=== PATIENT | female | born 1980 | race Caucasian/White ===

== ENCOUNTER → 2020-04-05 | Outpatient (CLI) | payer OTHER ==
[~2020-04-05] MED LIST: AMLO-150 PO; ATOR20TA37 PO; CLOP75TA52 PO; GABA600T7 PO; HUM100VI6 SQ-INSULIN; HYDR25TA6 PO; INSU100V5 SQ-INSULIN; LISI40TA PO; METO50TA82 PO; OMEP-110 PO; OXYC1TAB18 PO; RIVA20TA PO; SCOP1PAT11 TD; SPIR50TA4 PO; VERA240T10 PO
== END | disposition home or self-care (01) ==
LOC: CVU 07:06
PROVIDERS: ATTEND Surgery
DX: S61.401A Unspecified open wound of right hand, initial encounter (principal); X58.XXXA Exposure to other specified factors, initial encounter; Y92.89 Other specified places as the place of occurrence of the external cause; Y93.89 Activity, other specified; Y99.8 Other external cause status
CPT/HCPCS: 93922

== ENCOUNTER 2020-04-26 08:37 | Day surgery (SDC) | payer OTHER ==
[~2020-04-26] VITALS: Ht 170.2 cm; Wt 85.8 kg
[2020-04-26 09:13] VITALS: BP 197/115
[2020-04-26] MEDS ORDERED: CHLORHEXIDINE 15 ML UDC ONE (09:29)
[2020-04-26] MEDS ORDERED: CHLORHEXIDINE 15 ML UDC MM ONE (09:30)
[2020-04-26] MEDS ORDERED: LACTATED RINGERS 1,000 ML IV SCH (09:30)
[2020-04-26] MEDS ORDERED: MIDAZOLAM 1 MG/ML, 2ML ONE (09:47)
[2020-04-26] MEDS ORDERED: FENTANYL PF 250 MCG/5ML ONE (09:47)
[2020-04-26] MEDS ORDERED: PROPOFOL 10 MG/ML, 20ML ONE (09:48)
[2020-04-26] MEDS ORDERED: CEFAZOLIN 1,000 MG ONE (09:48)
[2020-04-26] MEDS ORDERED: ONDANSETRON 2MG/ML, 2ML ONE (09:48)
[2020-04-26] MEDS ORDERED: DEXAMETHASONE 4 MG/ML, 1ML ONE (09:48)
[2020-04-26] MEDS ORDERED: ASPIRIN 81 PO (09:57)
[2020-04-26 10:04] LABS: ALANINE AMINOTRANSFERASE 16 U/L (12-78); ALBUMIN 2.5 g/dL (3.4-5.0); CALCIUM 8.3 mg/dL (8.5-10.1); CREATININE 1.52 mg/dL (0.55-1.02)
[2020-04-26 10:06] LABS: ALKALINE PHOSPHATASE 92 U/L (45-117); BILIRUBIN,TOTAL 0.3 mg/dL (0.2-1.0); TOTAL PROTEIN 6.6 g/dL (6.4-8.2)
[2020-04-26 10:09] LABS: ANION GAP 6 mmol/L (5-15)
[2020-04-26] MEDS ORDERED: BUPIVACAINE/PF 0.25% ONE (10:11)
[2020-04-26 10:12] LABS: CHLORIDE 114 mmol/L (98-107)
[2020-04-26] MEDS ORDERED: PROPOFOL 100 ML ONE (10:18)
[2020-04-26] MEDS ORDERED: LABETALOL 5MG/ML, 20ML IV PRN (10:30)
[2020-04-26] MEDS ORDERED: FENTANYL PF 100 MCG/2ML IV PRN (10:30)
[2020-04-26] MEDS ORDERED: ONDANSETRON 2MG/ML, 2ML IVPush PRN (10:30)
[2020-04-26] MEDS ORDERED: MEPERIDINE/PF 25MG/0.5ML IVPush PRN (10:30)
[2020-04-26] MEDS ORDERED: morphine SULFATE 10 MG/ML, 1ML IVPush PRN (10:30)
[2020-04-26] MEDS ORDERED: ACETAMINOPHEN 325 MG TABLET PO PRN (10:30)
[2020-04-26] MEDS ORDERED: hydrALAzine 20 MG/ML, 1ML IV PRN (10:30)
[2020-04-26] MEDS ORDERED: HYDROmorphone 1 MG/ML, 1ML INJ IVPush PRN (10:30)
[2020-04-26] MEDS ORDERED: OXYcodone 5 MG/5 ML ORAL.SOL UDC PO PRN (10:30)
[2020-04-26] MEDS ORDERED: hydrALAzine 20 MG/ML, 1ML ONE (11:32)
== END 2020-04-26 14:10 | disposition home or self-care (01) ==
LOC: OUT 08:37
PROVIDERS: ATTEND Surgery Surgery of the Hand
DX: E10.622 Type 1 diabetes mellitus with other skin ulcer (principal); L98.499 Non-pressure chronic ulcer of skin of other sites with unspecified severity; E10.52 Type 1 diabetes mellitus with diabetic peripheral angiopathy with gangrene; I96 Gangrene, not elsewhere classified; D68.51 Activated protein C resistance; E78.5 Hyperlipidemia, unspecified; K21.9 Gastro-esophageal reflux disease without esophagitis; Z79.02 Long term (current) use of antithrombotics/antiplatelets; Z79.891 Long term (current) use of opiate analgesic; Z79.899 Other long term (current) drug therapy; Z79.82 Long term (current) use of aspirin; Z88.8 Allergy status to other drugs, medicaments and biological substances; Z86.718 Personal history of other venous thrombosis and embolism; Z82.3 Family history of stroke
CPT/HCPCS: 26910; 80053; 82962; J0360; J0690; J2250; J2704; J3010; J7120; J1100; J2405

== ENCOUNTER → 2020-07-08 | Outpatient (CLI) | payer OTHER ==
[~2020-07-08] MED LIST changes: +ASPIRIN 81 PO
== END | disposition home or self-care (01) ==
LOC: STAR 11:57
PROVIDERS: ATTEND Anesthesiology
DX: Z20.822 Contact with and (suspected) exposure to COVID-19 (principal)
CPT/HCPCS: 87635

== ENCOUNTER 2020-07-12 06:51 | Day surgery (SDC) | payer OTHER ==
[~2020-07-12] VITALS: Ht 167.6 cm; Wt 94.0 kg
[~2020-07-12 06:51] MED LIST changes: +BUPIVACAINE/PF 0.5% ONE; +LIDOCAINE-MPF 1%, 5ML ONE
[2020-07-12 07:07] VITALS: BP 187/93
[2020-07-12] MEDS ORDERED: CHLORHEXIDINE 15 ML UDC MM STA (07:10)
[2020-07-12] MEDS ORDERED: LACTATED RINGERS 1,000 ML IV SCH (07:30)
[2020-07-12 07:31] VITALS: BP 187/93
[2020-07-12] MEDS ORDERED: CHLORHEXIDINE 15 ML UDC ONE (07:40)
[2020-07-12] MEDS ORDERED: MIDAZOLAM 1 MG/ML, 2ML ONE (07:59)
[2020-07-12] MEDS ORDERED: FENTANYL PF 100 MCG/2ML ONE ×3 (07:59→09:20)
[2020-07-12] MEDS ORDERED: GLYCOPYRROLATE 0.2MG/1ML, 5ML ONE (08:09)
[2020-07-12] MEDS ORDERED: ONDANSETRON 2MG/ML, 2ML ONE ×2 (08:09→08:33)
[2020-07-12] MEDS ORDERED: PROPOFOL 10 MG/ML, 20ML ONE (08:09)
[2020-07-12] MEDS ORDERED: LIDOCAINE-MPF 2% ,5ML ONE (08:25)
[2020-07-12] MEDS ORDERED: CEFAZOLIN 1,000 MG ONE (08:33)
[2020-07-12] MEDS ORDERED: SODIUM CHLORIDE 0.9% PF 10ML ONE (08:33)
[2020-07-12] MEDS ORDERED: KETOROLAC 30 MG/1 ML ONE (08:33)
[2020-07-12] MEDS ORDERED: DEXAMETHASONE 4 MG/ML, 5ML ONE (08:33)
[2020-07-12] MEDS ORDERED: DIPHENHYDRAMINE 50 MG/ML, 1ML ONE (08:34)
[2020-07-12] MEDS ORDERED: hydrALAzine 20 MG/ML, 1ML ONE (08:41)
[2020-07-12] MEDS ORDERED: ONDANSETRON 2MG/ML, 2ML IVPush PRN (09:00)
[2020-07-12] MEDS ORDERED: OXYcodone 5 MG/5 ML ORAL.SOL UDC PO PRN (09:00)
[2020-07-12] MEDS ORDERED: hydrALAzine 20 MG/ML, 1ML IV PRN (09:00)
[2020-07-12] MEDS ORDERED: EPHEDRINE 50 MG/ML, 1ML IVPush PRN (09:00)
[2020-07-12] MEDS ORDERED: HYDROmorphone 1 MG/ML, 1ML INJ IVPush PRN (09:00)
[2020-07-12] MEDS ORDERED: PROMETHAZINE 25 MG/ML, 1ML IVPush PRN (09:00)
[2020-07-12] MEDS ORDERED: LABETALOL 5MG/ML, 20ML IV PRN (09:00)
[2020-07-12] MEDS: FENTANYL PF 100 MCG/2ML IV PRN ×3 (09:22→09:45)
[2020-07-12] MEDS ORDERED: OXYcodone 5 MG/5 ML ORAL.SOL UDC ONE (09:31)
== END 2020-07-12 11:55 | disposition home or self-care (01) ==
LOC: OUT 06:51
PROVIDERS: ATTEND Surgery Surgery of the Hand
DX: T81.31XA Disruption of external operation (surgical) wound, not elsewhere classified, initial encounter (principal); E10.51 Type 1 diabetes mellitus with diabetic peripheral angiopathy without gangrene; I10 Essential (primary) hypertension; E78.5 Hyperlipidemia, unspecified; F12.90 Cannabis use, unspecified, uncomplicated; Y83.8 Other surgical procedures as the cause of abnormal reaction of the patient, or of later complication, without mention of misadventure at the time of the procedure; Z79.4 Long term (current) use of insulin; Z79.899 Other long term (current) drug therapy; Z91.048 Other nonmedicinal substance allergy status; Z82.3 Family history of stroke; Z82.49 Family history of ischemic heart disease and other diseases of the circulatory system; Z83.3 Family history of diabetes mellitus; Z86.718 Personal history of other venous thrombosis and embolism; Z98.890 Other specified postprocedural states
CPT/HCPCS: 11043; 82962; J0360; J0690; J1100; J1200; J1885; J2250; J2405; J2704; J3010; J7120

== ENCOUNTER 2020-09-13 14:07 | Day surgery (SDC) | payer OTHER ==
[~2020-09-13] VITALS: Ht 170.2 cm; Wt 90.7 kg
[~2020-09-13 14:07] MED LIST changes: -BUPIVACAINE/PF 0.5% ONE; -LIDOCAINE-MPF 1%, 5ML ONE; -LISI40TA PO; +LISI40TA9 PO
[2020-09-13] MEDS ORDERED: FENTANYL PF 100 MCG/2ML ONE ×2 (14:21→16:18)
[2020-09-13] MEDS ORDERED: MIDAZOLAM 1 MG/ML, 2ML ONE (14:21)
[2020-09-13 14:38] VITALS: BP 168/83
[2020-09-13] MEDS ORDERED: CHLORHEXIDINE 15 ML UDC PO ONE (15:00)
[2020-09-13] MEDS ORDERED: LACTATED RINGERS 1,000 ML IV SCH (15:00)
[2020-09-13] MEDS ORDERED: BUPIVACAINE/PF 0.5% ONE (15:15)
[2020-09-13] MEDS ORDERED: PROPOFOL 10 MG/ML, 20ML ONE (15:30)
[2020-09-13] MEDS ORDERED: ONDANSETRON 2MG/ML, 2ML ONE (15:30)
[2020-09-13] MEDS ORDERED: PROPOFOL 10 MG/ML, 50ML ONE (15:30)
[2020-09-13] MEDS ORDERED: DIPHENHYDRAMINE 50 MG/ML, 1ML IVPush PRN (16:00)
[2020-09-13] MEDS ORDERED: DIAZEPAM 5 MG/ML, 2ML IVPush PRN (16:00)
[2020-09-13] MEDS ORDERED: EPHEDRINE 50 MG/ML, 1ML IM PRN (16:00)
[2020-09-13] MEDS ORDERED: EPHEDRINE 50 MG/ML, 1ML IVPush PRN (16:00)
[2020-09-13] MEDS ORDERED: ACETAMINOPHEN 325 MG TABLET PO PRN (16:00)
[2020-09-13] MEDS ORDERED: ONDANSETRON 2MG/ML, 2ML IVPush PRN (16:00)
[2020-09-13] MEDS ORDERED: PROMETHAZINE 25 MG/ML, 1ML IVPush PRN (16:00)
[2020-09-13] MEDS ORDERED: HYDROmorphone 1 MG/ML, 1ML INJ IVPush PRN (16:00)
[2020-09-13] MEDS ORDERED: MEPERIDINE/PF 25MG/0.5ML IVPush PRN (16:00)
[2020-09-13] MEDS ORDERED: OXYcodone 5 MG/5 ML ORAL.SOL UDC PO PRN (16:00)
[2020-09-13] MEDS ORDERED: OXYcodone 5 MG/5 ML ORAL.SOL UDC ONE (16:18)
[2020-09-13] MEDS: FENTANYL PF 100 MCG/2ML IV PRN ×2 (16:20→16:27)
[2020-09-13] MEDS: hydrALAzine 20 MG/ML, 1ML IV PRN ×2 (16:25→16:45)
[2020-09-13] MEDS: LABETALOL 5MG/ML, 20ML IV PRN ×2 (16:30→16:40)
[2020-09-13] MEDS ORDERED: hydrALAzine 20 MG/ML, 1ML ONE (16:49)
[2020-09-13] MEDS ORDERED: MEPERIDINE/PF 25MG/ML,1ML ONE (17:13)
== END 2020-09-13 19:10 | disposition home or self-care (01) ==
LOC: OR 14:07
PROVIDERS: ATTEND Surgery Surgery of the Hand
DX: M79.644 Pain in right finger(s) (principal); T81.89XA Other complications of procedures, not elsewhere classified, initial encounter; Y83.8 Other surgical procedures as the cause of abnormal reaction of the patient, or of later complication, without mention of misadventure at the time of the procedure; E11.9 Type 2 diabetes mellitus without complications; I10 Essential (primary) hypertension; F12.90 Cannabis use, unspecified, uncomplicated; Z79.899 Other long term (current) drug therapy; Z86.73 Personal history of transient ischemic attack (TIA), and cerebral infarction without residual deficits; Z79.4 Long term (current) use of insulin; Z72.89 Other problems related to lifestyle; Z98.890 Other specified postprocedural states
CPT/HCPCS: 11044; 82962; 87070; 87075; 87077; 87186; 87205; 93005; J0360; J2175; J2250; J2405; J2704; J3010; J7120